=== PATIENT | female | born 1985 | race Caucasian/White ===

== ENCOUNTER 2016-08-06 07:47 | Emergency (ER) | payer OTHER | END 2016-08-06 12:05 | disposition home or self-care (01) | LOC: ER 07:47 | DX: J18.9 Pneumonia, unspecified organism (principal); M54.2 Cervicalgia; M54.9 Dorsalgia, unspecified; F41.9 Anxiety disorder, unspecified; F17.210 Nicotine dependence, cigarettes, uncomplicated; Z88.0 Allergy status to penicillin; Z88.8 Allergy status to other drugs, medicaments and biological substances | CPT/HCPCS: 36415; 96365; J0696; Q9967 ==